=== PATIENT | female | born 1990 | race Caucasian/White ===

== ENCOUNTER 2024-05-15 07:19 | Outpatient (CLI) | payer OTHER, SELFPAY ==
--- NOTE | ~2024-05-15 | XR_ITS ---
XR wrist LT min 3V 05/15/2024 07:43 Indication: Left wrist pain Procedure: 5 views left wrist Comparison: No prior studies for comparison. Findings: There is an osteochondral defect of the distal aspect of the radius, possibly due to prior trauma. No acute fracture is identified. No focal soft tissue abnormality. No foreign bodies. Impression: 1: Osteochondral defect distal aspect of the radius, suspicious for remote injury. No acute fracture. Reviewed, dictated and finalized at location B. Impression: 1: Osteochondral defect distal aspect of the radius, suspicious for remote inju ry. No acute fracture.
== END 2024-05-15 07:20 | disposition home or self-care (01) ==
LOC: MICIMG 07:27
DX: M77.9 Enthesopathy, unspecified (principal)
CPT/HCPCS: 73110